=== PATIENT | female | born 2000 | race American Indian/Alaskan Native ===

== ENCOUNTER 2021-10-14 11:43 | Emergency (ER) | payer SELFPAY ==
--- NOTE | 2021-10-14 13:45 | Emergency Department Report ---
ED General Adult HPI - General Chief complaint: Abdominal Pain Stated complaint: CRAMPS Time Seen by Provider: 10/14/21 13:30 Source: patient Mode of arrival: Ambulatory Limitations: No Limitations - History of Present Illness Initial comments: Patient is 21 years old female 2 para 1 at 8 weeks gestation. Patient presented to the ER complaining of lower abdominal cramping pain started this morning. Patient denied any vaginal bleeding or vaginal discharge. Patient also denied any nausea or vomiting. -: This morning Location: abdomen Severity scale (0 -10): 5 - Related Data Allergies Allergy/AdvReac Type Severity Reaction Status Date / Time VACCINES Allergy Itching Uncoded 10/14/21 11:45 ED Review of Systems ROS: Stated complaint: CRAMPS Other details as noted in HPI Comment: All other systems reviewed and negative Constitutional: denies: chills, fever Respiratory: denies: cough, shortness of breath, SOB with exertion Cardiovascular: denies: chest pain, palpitations Gastrointestinal: abdominal pain. denies: nausea, vomiting, diarrhea Musculoskeletal: denies: back pain Neurological: denies: headache, weakness, numbness, paresthesias, confusion ED Past Medical Hx - Past Medical History Additional medical history: OVARIAN CYST - Surgical History Past Surgical History?: No ED Physical Exam - General Limitations: No Limitations General appearance: alert, in no apparent distress - Head Head exam: Present: atraumatic, normocephalic, normal inspection - Eye Eye exam: Present: normal appearance - ENT ENT exam: Present: normal exam, normal orophraynx, mucous membranes moist - Neck Neck exam: Present: normal inspection, full ROM. Absent: tenderness, meningismus - Respiratory Respiratory exam: Present: normal lung sounds bilaterally - Cardiovascular Cardiovascular Exam: Present: regular rate, normal rhythm, normal heart sounds - GI/Abdominal GI/Abdominal exam: Present: soft, normal bowel sounds. Absent: distended, tenderness, guarding, rebound, rigid, organomegaly, mass, bruit, pulsatile mass, hernia - Extremities Exam Extremities exam: Present: normal inspection, full ROM, normal capillary refill. Absent: tenderness - Back Exam Back exam: Present: normal inspection, full ROM. Absent: CVA tenderness (R), CVA tenderness (L) - Neurological Exam Neurological exam: Present: alert, oriented X3, CN II-XII intact, normal gait, reflexes normal. Absent: motor sensory deficit - Psychiatric Psychiatric exam: Present: normal mood - Skin Skin exam: Present: warm, intact, normal color ED Course Vital Signs 10/14/21 11:48 Temperature 98.8 F Pulse Rate 98 H Respiratory 18 Rate Blood Pressure 127/57 [Right] O2 Sat by Pulse 98 Oximetry ED Medical Decision Making - Lab Data Result diagrams: 10/14/21 13:58 10/14/21 13:58 - Radiology Data Radiology results: report reviewed - Medical Decision Making Patient is 21 years old female 2 para 1 at 8 weeks gestation. Patient presented to the ER complaining of lower abdominal cramping pain started this morning. Patient denied any vaginal bleeding or vaginal discharge. Patient also denied any nausea or vomiting. Patient remained stable in the ER with stable vital signs. Labs reviewed and is unremarkable. ultrasound and pelvic ultrasound showed 11 weeks intrauterine live gestation. Patient also had a right ovarian cyst. Patient advised to follow-up with her OB doctor in the next 2 to 3 days and to return to the ER if she develop any new symptoms. Critical care attestation.: If time is entered above; I have spent that time in minutes in the direct care of this critically ill patient, excluding procedure time. ED Disposition Clinical Impression: Abdominal pain affecting Disposition: HOME / SELF CARE / HOMELESS Is pt being admited?: No Condition: Stable Instructions: Abdominal Pain (ED), Abdominal Pain During , [id number] Referrals: PRIMARY CARE, [Primary Care Provider] - 3-5 Days
[2021-10-14 14:52] LABS: Basophils % (Auto) 0.3 % (0.0-1.8); Eosinophils % (Auto) 0.5 % (0.0-4.3); Hematocrit 36.8 % (30.3-42.9); Hemoglobin 12.2 gm/dl (10.1-14.3); Lymphocytes # (Auto) 1.2 K/mm3 (1.2-5.4); Lymphocytes % (Auto) 26.2 % (13.4-35.0); Mean Corpuscular HGB Conc 33 % (30-34); Mean Corpuscular Volume 93 fl (79-97); Monocytes # (Auto) 0.4 K/mm3 (0.0-0.8); Monocytes % (Auto) 8.4 % (0.0-7.3); Platelet Count 239 K/mm3 (140-440); Red Blood Count 3.96 M/mm3 (3.65-5.03); Red Cell Distribution Width 12.5 % (13.2-15.2)
[2021-10-14 15:06] LABS: Bilirubin,Urine NEG (Negative); Blood,Urine NEG (Negative); Color,Urine Yellow (Yellow); Mucus,Urine FEW /HPF; Protein,Urine <15 mg/dL mg/dL (Negative); Urobilinogen,Urine < 2.0 mg/dL (<2.0); WBC,Urine < 1.0 /HPF (0.0-6.0)
[2021-10-14 15:09] LABS: Blood Urea Nitrogen 16 mg/dL (7-17); Calcium 9.3 mg/dL (8.4-10.2); Hemolysis Index 9
[2021-10-14 15:11] LABS: BUN/Creatinine Ratio 32
--- NOTE | 2021-10-14 16:32 | Ultrasound Report ---
ULTRASOUND PELVIS INDICATION: Abdominal cramps, 8 weeks .. TECHNIQUE: Transabdominal. Duplex Color Doppler used: Yes. COMPARISON: None available FINDINGS: Uterus: Present. Size: 11.4 x 8.1 x 8.4 cm. Endometrial complex: Early viable intrauterine dated 11 weeks 2 days by ultrasound. h eart tones 162 bpm. Mass lesions: None. Additional findings: None. Right Ovary -- 3.8 x 3.4 x 2.8 cm. Blood flow: Normal. Cyst or mass: 1.4 cm cyst. Left Ovary-- 4 x 2.7 x 2.2 cm. Blood flow: Normal. Cyst or mass: None. Urinary Bladder: Normal. Free Fluid: Trace. Additional Findings: None. IMPRESSION: 1. Early intrauterine dated 11 weeks 2 days by ultrasound. 2. Small cyst right ovary. Signer Name: Guido Galarza MD Signed: 10/14/2021 4:27 PM Workstation Name: [id number]
[2021-10-14 16:36] VITALS: BP 114/68
== END 2021-10-14 16:36 | disposition home or self-care (01) ==
LOC: ED 11:43
DX: O26.891 Other specified pregnancy related conditions, first trimester (principal); R10.30 Lower abdominal pain, unspecified; Z3A.01 Less than 8 weeks gestation of pregnancy
CPT/HCPCS: 36415; 76801; 80048; 81001; 84702; 85025; 99284